=== PATIENT | female | born 1940 | race Caucasian/White ===

== ENCOUNTER → 2016-07-27 | Outpatient (CLI) | payer OTHER ==
[~2016-07-27] MED LIST: (NONE)1 CA1 PO; ANTI-DIARRHEAL2 M1 PO; ATENOLOL PO; AZULFIDINE500 M1 PO; BENADRYL25 M3 PO; CALCIUM 600-D T1 TAB PO; CARAFATE1 G PO; CHEMO THERAPY; CHOLESTYRAMINE378 G1 PO; DIPHENOXYLATE/A1 TA1 PO; DOXYCYCLINE HY100 M4 PO; ENTOCORT EC3 MG PO; K-DUR20 ME1 PO; K-DUR20 ME2 PO; LEVO-T100 MCG PO; LIALDA1.2 G PO; LORTAB 2.5/5001 TAB PO; MAG-OX 400400 M1 PO; MAGNESIUM IV; MAGNESIUM2 GM/50 ML IV; MOTRIN400 MG PO; OS-CAL 500+D CA1 TA1 PO; PAXIL PO; PAXIL30 MG PO; PENTASA250 MG PO; PHENERGAN25 M1 PO; POTASSIUM CHLO10 ME1 PO; PRILOSEC PO; PRILOSEC20 MG PO; RANITIDINE HCL300 M1 PO; RESTASIS OU; SIMPONI50 MG/0.1 SQ; SOD BICARBONATE PO; SYNTHROID PO; SYNTHROID0.1 MG PO; SYNTHROID25 MCG PO; TENORMIN25 MG PO; TRIAMCINOLONE AC1 GM EXT; VITAMIN A10000 UNIT PO; VITAMIN B12 IM; VITAMIN D1000 UNI2 PO; VITAMIN D34000 UNIT PO; VITAMIN D350000 UNIT PO; VITAMIN D400 UNI2 PO; ZANTAC300 MG PO; ZOFRAN ODT4 MG PO
--- NOTE | ~2016-07-27 | XA77 ---
[facility] A Service of [facility] RADIOLOGY TEXT RESULTS PATIENT: SVEN SYKES LOCATION: CIVR : 40 UNIT #: [id number] AGE: [address]: Justyn Cooper MD SEX: F ORDER DR: [id number] [facility] [address] [place], [place] [address] [id number] MR#: [id number] Acc #: [id number] NAME: SVEN SYKES : 1940 SEX: F STUDY DATE/TIME: 07/27/2016 10:55 UNIT: CIVR ROOM: STUDY DESCRIPTION: XA CVC Port Devive Check Attending Physician: Justyn Cooper M.D. Ordering Physician: Justyn Cooper M.D. Primary Care Physician: Yobany Brennan D.O. MEDICAL IMAGING REPORT This report is preliminary unless electronic signature is present EXAM Port check HISTORY Difficulty aspirating blood from the port on occasion. TECHNIQUE The procedure was explained to the patient including risks, benefits, and complications. Informed consent was obtained. A formal timeout procedure was utilized. The port was accessed. It was irrigated with saline which irrigated easily. Contrast was then injected and a DSA run was performed. A total of 3 spot-films were obtained. The port flushed easily. After injection, it aspirated easily as well. There is the suggestion of a very thin fibrin sheath around the distal aspect of the port. The contrast does show out of the distal end but without difficulty. IMPRESSION Probable thin fibrin sheath. At the end of the procedure, the port injects and aspirates easily. Total fluoroscopic time 0.3 minutes with 3 spot films. Dictated by... Yobany Najera M.D. THIS IS AN ELECTRONICALLY VERIFIED REPORT Yobany Najera M.D. at 07/27/2016 4:31 PM KATTY/yazmin TD: 07/27/2016 16:20 [facility] A Service of [facility] RADIOLOGY TEXT RESULTS PATIENT: SVEN SYKES LOCATION: [facility] #: [id number] : 40 UNIT #: [id number] AGE: [address]: Justyn Cooper MD SEX: F ORDER DR: JOB #: [id number] MEDICAL IMAGING REPORT COPY
== END | disposition home or self-care (01) ==
LOC: CIVR 10:23
DX: Z45.2 Encounter for adjustment and management of vascular access device (principal); C17.8 Malignant neoplasm of overlapping sites of small intestine; D50.8 Other iron deficiency anemias; E83.42 Hypomagnesemia
CPT/HCPCS: J1642; Q9967

== ENCOUNTER → 2016-07-29 | Outpatient (CLI) | payer OTHER | END | disposition home or self-care (01) | LOC: CSSDAY 10:44 | DX: E83.42 Hypomagnesemia (principal); Z79.899 Other long term (current) drug therapy | CPT/HCPCS: 36415; 83735; 96365; J3475 ==

== ENCOUNTER → 2016-08-05 | Outpatient (CLI) | payer OTHER | END | disposition home or self-care (01) | LOC: CSSDAY 09:45 | DX: E83.42 Hypomagnesemia (principal); Z79.899 Other long term (current) drug therapy | CPT/HCPCS: 83735; 96365; J1642; J3475 ==

== ENCOUNTER → 2016-08-19 | Outpatient (CLI) | payer OTHER | END | disposition home or self-care (01) | LOC: CSSDAY 10:39 | DX: E83.42 Hypomagnesemia (principal); Z79.899 Other long term (current) drug therapy | CPT/HCPCS: 36415; 83735; 96365; J3475 ==

== ENCOUNTER → 2016-09-02 | Outpatient (CLI) | payer OTHER | END | disposition home or self-care (01) | LOC: CLAB 10:43 | DX: E83.42 Hypomagnesemia (principal); Z79.899 Other long term (current) drug therapy | CPT/HCPCS: 83735; 96365; J1642; J3475 ==

== ENCOUNTER → 2016-09-09 | Outpatient (CLI) | payer OTHER | END | disposition home or self-care (01) | LOC: CSSDAY 10:31 | DX: E83.42 Hypomagnesemia (principal); Z79.899 Other long term (current) drug therapy | CPT/HCPCS: 36415; 83735; 96365; J1642; J3475 ==

== ENCOUNTER → 2016-09-16 | Outpatient (CLI) | payer OTHER | END | disposition home or self-care (01) | LOC: CSSDAY 10:28 | DX: E83.42 Hypomagnesemia (principal); Z79.899 Other long term (current) drug therapy | CPT/HCPCS: 36415; 83735; 96365; J1642; J3475 ==

== ENCOUNTER → 2016-09-23 | Outpatient (CLI) | payer OTHER | END | disposition home or self-care (01) | LOC: CSSDAY 10:38 | DX: E83.42 Hypomagnesemia (principal); Z79.899 Other long term (current) drug therapy | CPT/HCPCS: 83735; 96365; J1642; J3475 ==

== ENCOUNTER → 2016-09-29 | Outpatient (CLI) | payer OTHER | END | disposition home or self-care (01) | LOC: CSSDAY 11:01 | DX: E83.42 Hypomagnesemia (principal); Z79.899 Other long term (current) drug therapy | CPT/HCPCS: 83735; 96365; J1642; J3475 ==

== ENCOUNTER → 2016-10-07 | Outpatient (CLI) | payer OTHER | END | disposition home or self-care (01) | LOC: CSSDAY 10-06 10:00 | DX: E83.42 Hypomagnesemia (principal); Z79.899 Other long term (current) drug therapy | CPT/HCPCS: 83735; 96365; J1642; J3475 ==

== ENCOUNTER → 2016-10-14 | Outpatient (CLI) | payer OTHER | END | disposition home or self-care (01) | LOC: CSSDAY 10:51 | DX: E83.42 Hypomagnesemia (principal); Z79.899 Other long term (current) drug therapy | CPT/HCPCS: 83735; 96365; J1642; J3475 ==

== ENCOUNTER → 2016-10-21 | Outpatient (CLI) | payer OTHER | END | disposition home or self-care (01) | LOC: CSSDAY 11:00 | DX: E83.42 Hypomagnesemia (principal); Z79.899 Other long term (current) drug therapy | CPT/HCPCS: 83735; 96365; J1642; J3475 ==

== ENCOUNTER → 2016-10-28 | Outpatient (CLI) | payer OTHER | END | disposition home or self-care (01) | LOC: CSSDAY 10:49 | DX: E83.42 Hypomagnesemia (principal) | CPT/HCPCS: 83735; 96365; J1642; J3475 ==

== ENCOUNTER → 2016-11-04 | Outpatient (CLI) | payer OTHER | END | disposition home or self-care (01) | LOC: CSSDAY 10:43 | DX: E83.42 Hypomagnesemia (principal); Z79.899 Other long term (current) drug therapy | CPT/HCPCS: 83735; 96365; J1642; J3475 ==

== ENCOUNTER → 2016-11-11 | Outpatient (CLI) | payer OTHER | END | disposition home or self-care (01) | LOC: CSSDAY 09:00 | DX: E83.42 Hypomagnesemia (principal); Z79.899 Other long term (current) drug therapy | CPT/HCPCS: 83735; 96365; J1642; J3475 ==

== ENCOUNTER → 2016-11-18 | Outpatient (CLI) | payer OTHER | END | disposition home or self-care (01) | LOC: CSSDAY 11:00 | DX: E83.42 Hypomagnesemia (principal); Z79.899 Other long term (current) drug therapy | CPT/HCPCS: 83735; 96365; J1642; J3475 ==

== ENCOUNTER → 2016-11-26 | Outpatient (CLI) | payer OTHER | END | disposition home or self-care (01) | LOC: CSSDAY 11-25 11:00 | DX: E83.42 Hypomagnesemia (principal); Z79.899 Other long term (current) drug therapy | CPT/HCPCS: 83735; J1642; J3475 ==

== ENCOUNTER → 2016-12-03 | Outpatient (CLI) | payer OTHER | END | disposition home or self-care (01) | LOC: CSSDAY 10:46 | DX: E83.42 Hypomagnesemia (principal); Z79.899 Other long term (current) drug therapy | CPT/HCPCS: 83735; 96365; J1642; J3475 ==

== ENCOUNTER → 2016-12-10 | Outpatient (CLI) | payer OTHER | END | disposition home or self-care (01) | LOC: CSSDAY 09:00 | DX: E83.42 Hypomagnesemia (principal); Z79.899 Other long term (current) drug therapy | CPT/HCPCS: 83735; 96365; J1642; J3475 ==

== ENCOUNTER → 2016-12-16 | Outpatient (CLI) | payer OTHER | END | disposition home or self-care (01) | LOC: CSSDAY 08:00 | DX: E83.42 Hypomagnesemia (principal); Z79.899 Other long term (current) drug therapy | CPT/HCPCS: 83735; 96365; J1642; J3475 ==

== ENCOUNTER → 2016-12-23 | Day surgery (SDC) | payer OTHER | END | disposition home or self-care (01) | LOC: CSSDAY 10:57 | DX: E83.42 Hypomagnesemia (principal) | CPT/HCPCS: 83735; 96365; J1642; J3475 ==

== ENCOUNTER → 2016-12-31 | Outpatient (CLI) | payer OTHER | END | disposition home or self-care (01) | LOC: CSSDAY 12-30 09:00 | DX: E83.42 Hypomagnesemia (principal) | CPT/HCPCS: 83735; 96365; J1642; J3475 ==

== ENCOUNTER → 2017-01-06 | Outpatient (CLI) | payer OTHER | END | disposition home or self-care (01) | LOC: CSSDAY 10:46 | DX: E83.42 Hypomagnesemia (principal); Z79.899 Other long term (current) drug therapy | CPT/HCPCS: 83735; 96365; J1642; J3475 ==

== ENCOUNTER → 2017-01-13 | Outpatient (CLI) | payer OTHER | END | disposition home or self-care (01) | LOC: CSSDAY 10:37 | DX: E83.42 Hypomagnesemia (principal); Z79.899 Other long term (current) drug therapy | CPT/HCPCS: 83735; 96365; J1642; J3475 ==

== ENCOUNTER → 2017-01-20 | Outpatient (CLI) | payer OTHER | END | disposition home or self-care (01) | LOC: CSSDAY 10:44 | DX: E83.42 Hypomagnesemia (principal) | CPT/HCPCS: 83735; 96365; J1642; J3475 ==

== ENCOUNTER → 2017-01-27 | Outpatient (CLI) | payer OTHER | END | disposition home or self-care (01) | LOC: CSSDAY 10:19 | DX: E83.42 Hypomagnesemia (principal) | CPT/HCPCS: 83735; 96365; J1642; J3475 ==

== ENCOUNTER → 2017-02-03 | Outpatient (CLI) | payer OTHER | END | disposition home or self-care (01) | LOC: CSSDAY 08:00 | DX: E83.42 Hypomagnesemia (principal) | CPT/HCPCS: 83735; 96365; J1642; J3475 ==

== ENCOUNTER → 2017-02-10 | Outpatient (CLI) | payer OTHER | END | disposition home or self-care (01) | LOC: CSSDAY 10:00 | DX: E83.42 Hypomagnesemia (principal) | CPT/HCPCS: 83735; 96365; J1642; J3475 ==